=== PATIENT | female | born 1980 | race Asian ===

== ENCOUNTER 2018-09-09 03:39 | Observation (INO) | payer MEDICARE ==
[~2018-09-09] VITALS: Ht 160 cm; Wt 89.4 kg
[~2018-09-09 03:39] MED LIST: ACET325 PO; AMLO10 PO; ATEN25 PO; Furosemide80 MG PO; LOSA50 PO; SEVE800 PO; VELPHORO500 MG PO
[2018-09-09 05:03] LABS: BASOPHILS ABSOLUTE AUTO 0.03 K/mm3 (0.00-0.23); BASOPHILS PERCENT AUTO 0 % (0-2); EOSINOPHILS ABSOLUTE AUTO 0.24 K/mm3 (0.00-0.68); EOSINOPHILS PERCENT AUTO 3 % (0-6); Hematocrit 26.6 % (33.0-51.0); Hemoglobin 8.5 g/dL (11.5-16.0); IMMATURE GRAN ABSOLUTE AUTO 0.04 K/mm3 (0.00-0.10); IMMATURE GRAN PERCENT AUTO 1 % (0-1); LYMPHOCYTES ABSOLUTE AUTO 1.65 K/mm3 (0.84-5.20); LYMPHOCYTES PERCENT AUTO 19 % (21-46); MONOCYTES ABSOLUTE AUTO 0.49 K/mm3 (0.16-1.47); MONOCYTES PERCENT AUTO 6 % (4-13); Mean Corpuscular HGB 30.9 pg (26.0-34.0); Mean Corpuscular Volume 97 fL (80-100); Mean Platelet Volume 9.5 fL (9.1-12.4); NEUTROPHILS ABSOLUTE AUTO 6.18 K/mm3 (1.96-9.15); NEUTROPHILS PERCENT AUTO 72 % (41-73); Platelet Count 254 K/mm3 (150-400); RDW Coefficient Variation 13.9 % (11.7-14.2); Red Blood Cell Count 2.75 M/mm3 (3.80-5.20); White Blood Cell Count 8.63 K/mm3 (4.00-11.30)
[2018-09-09 05:37] LABS: Albumin, Blood 3.7 g/dL (3.4-5.0); Albumin/Globulin Ratio 0.9 (0.8-1.8); Bilirubin, Total 0.4 mg/dL (0.1-1.0); Bun/Creatinine Ratio 7.4 (12.0-20.0); Calcium, Blood 8.1 mg/dL (8.5-10.1); Creatinine, Blood 11.9 mg/dL (0.40-1.00); Globulin, Blood 4.3 g/dL (2.2-4.0); Potassium, Blood 4.9 mmol/L (3.5-5.5)
[2018-09-09 06:32] LABS: CHOL/HDL RATIO 3.9; Cholesterol 124 mg/dL (50-200); HDL Cholesterol 32 mg/dL (>39); LDL/HDL RATIO 2.4; Low Density Lipoprotein Chol 77 mg/dL (0-110); Triglycerides 74 mg/dL (30-140); Very Low Density Lipoprot Chol 14 mg/dL (6-28)
--- NOTE | 2018-09-09 18:40 | NUR ---
SHIFT SUMMARY PT NEW ADMIT THIS SHIFT FOR PANCREATITIS. MEDICATED FOR ABD PAIN IN EPIGASTRIC AREA TWICE WITH 50MCG FENTANYL-PAIN INCREASED AFTER EATING REGULAR DIET SO NPO PER DR AT THIS TIME. DIALYSIS DONE THIS SHIFT. NO URINE OUTPUT-BLADDER SCAN 5ML. PER DR GARCIA KEEP PATIENT TONIGHT TO MONITOR ABDOMINAL PAIN.
--- NOTE | 2018-09-09 20:26 | NUR ---
DIALYSIS DR CLINTON INCREASED PT'S TIME SO THE UNIT OF PRBC'S COULD BE GIVEN WITH HD.
[2018-09-10 05:19] LABS: Hematocrit 32.2 % (33.0-51.0); Hemoglobin 10.3 g/dL (11.5-16.0); Mean Corpuscular HGB 30.7 pg (26.0-34.0); Mean Corpuscular Volume 96 fL (80-100); Mean Platelet Volume 9.8 fL (9.1-12.4); Platelet Count 263 K/mm3 (150-400); RDW Coefficient Variation 13.7 % (11.7-14.2); RDW Standard Deviation 48.5 fL (35.1-46.3); Red Blood Cell Count 3.35 M/mm3 (3.80-5.20); White Blood Cell Count 6.94 K/mm3 (4.00-11.30)
[2018-09-10 05:56] LABS: Magnesium, Blood 2.6 mg/dL (1.6-2.4)
[2018-09-10 06:11] LABS: Alanine Aminotransfer (ALT/SGP 59 U/L (12-78); Albumin, Blood 3.7 g/dL (3.4-5.0); Albumin/Globulin Ratio 0.8 (0.8-1.8); Alk Phos 142 U/L (50-136); Anion Gap 11 mmol/L (6-16); Aspartate Aminotrans (AST/SGOT 66 U/L (12-37); Bilirubin, Total 0.5 mg/dL (0.1-1.0); Blood Urea Nitrogen 51 mg/dL (8-24); Bun/Creatinine Ratio 5.9 (12.0-20.0); CO2, Blood 30 mmol/L (21-32); Calcium, Blood 8.6 mg/dL (8.5-10.1); Chloride, Blood 94 mmol/L (98-108); Creatinine, Blood 8.63 mg/dL (0.40-1.00); Globulin, Blood 4.7 g/dL (2.2-4.0); Glomerular Filtration Rate 5 (60-); Glucose, Blood 98 mg/dL (70-99); Potassium, Blood 5.2 mmol/L (3.5-5.5); Sodium, Blood 135 mmol/L (136-145); Total Protein, Blood 8.4 g/dL (6.4-8.2)
[2018-09-10 06:24] LABS: Phosphorus, Blood 9.1 mg/dL (2.5-4.9)
--- NOTE | 2018-09-10 09:43 | NUR ---
pt to dialysis
[2018-09-10] MEDS ORDERED: Omeprazole20 M1 PO (10:58)
--- NOTE | 2018-09-10 12:10 | NUR ---
BACK FROM DIALYSIS CLEAR LIQUIDS TAKEN W/O PROBLEM. NOW EATING REGULAR DIET LUNCH.
--- NOTE | 2018-09-10 13:06 | NUR ---
CALLED PRESCRIPTION TO [facility] PER PT REQUEST.
--- NOTE | 2018-09-10 14:51 | NUR ---
DISCHARGED PT DC'D. REVIEWED DC PAPERWORK W/PT; VERBALIZED UNDERSTANDING. DC'D IV, CATHETER INTACT. PT LEFT UNIT BY AMBULATION W/POSSESSIONS AND DC PAPERWORK IN HAND.
== END 2018-09-10 14:20 | disposition home or self-care (01) ==
LOC: ER 03:39 → SURS 03:40 → ERHOLD 03:40 → SURS 08:32
PROVIDERS: Emergency Medicine; ADMIT Internal Medicine
DX: K85.90 Acute pancreatitis without necrosis or infection, unspecified (principal); I12.0 Hypertensive chronic kidney disease with stage 5 chronic kidney disease or end stage renal disease; N18.6 End stage renal disease; D63.1 Anemia in chronic kidney disease; E86.9 Volume depletion, unspecified; N25.81 Secondary hyperparathyroidism of renal origin; F17.210 Nicotine dependence, cigarettes, uncomplicated; Z88.8 Allergy status to other drugs, medicaments and biological substances; Z79.899 Other long term (current) drug therapy; Z90.49 Acquired absence of other specified parts of digestive tract
CPT/HCPCS: 36415; 36430; 80053; 80061; 82947; 83690; 83735; 84100; 85025; 85027; 86850; 86900; 86901; 86923; 96372; 96374; 96375; 96376; 99284-25; G0257; G0378; J0881; J1170; J1650; J2405; J3010; P9016